=== PATIENT | female | born 1995 | race Caucasian/White ===

== ENCOUNTER → 2017-02-19 | Outpatient (CLI) | payer BC ==
--- NOTE | 2017-02-19 16:05 | RAD ---
MR of the right knee HISTORY: Medial right knee pain after twisting injury wall pitching. TECHNIQUE: Routine multiplanar sequences are obtained. FINDINGS: Moderate motion degradation No evidence of medial meniscal tear. No evidence of lateral meniscal tear. Anterior cruciate ligament intact. Posterior cruciate ligament intact. Medial collateral ligament intact Iliotibial band unremarkable Fibular collateral ligament, biceps femoris tendon and popliteus tendon are intact. Extensor mechanism is intact Large joint effusion. No evidence of osteochondral loose body. Lateral patellar subluxation and tilt. Subchondral marrow contusion or nondisplaced fracture at the inferomedial aspect of the patella. Reciprocating subcortical and subchondral marrow contusion at the lateral femoral condyle. Findings are compatible with a recent lateral patellar dislocation. Partial tearing of the medial retinaculum and medial patellofemoral ligament. Tibial tubercle-trochlear groove distance measures 19 mm. Mild soft tissue edema or contusion around the knee. IMPRESSION: Reciprocating patellofemoral bone injuries compatible with recent lateral patellar dislocation. Partial tearing of medial retinacular structures. Tibial tubercle lateralization measures 19 mm. Electronically signed by: Carlos Galicia MD (02/19/2017 4:02 PM)
== END | disposition home or self-care (01) ==
LOC: MRI 14:07
DX: S83.001A Unspecified subluxation of right patella, initial encounter (principal); X58.XXXA Exposure to other specified factors, initial encounter; Y92.89 Other specified places as the place of occurrence of the external cause; Y93.89 Activity, other specified; Y99.8 Other external cause status
CPT/HCPCS: 73721

== ENCOUNTER → 2017-07-01 | Day surgery (SDC) | payer BC ==
[~2017-07-01] MED LIST: HYDROmorphone 2 MG/ML VIAL IV PRN; IV RINGERS,LACTATED 1000ML 1,000 ML IV SCH; LIDOCAINE 1% PF 2 ML VIAL. ID PRN; LIDOCAINE 2% PF Vial for OR 5 ML VIAL. ONE; MIDAZOLAM HCL/PF 2 MG/2 ML VIAL. IV PRN; MORPHINE SULFATE 2 MG/ML DISP.SYRIN. IV PRN; ONDANSETRON PF 4 MG/2 ML VIAL. IV PRN; PANT40TA5 PO; PROCHLORPERAZINE 10 MG/2 ML VIAL. IV PRN; PROPOFOL 40 ML IV ONE; fentaNYL PF VIAL 100 MCG/2 ML VIAL IV PRN
[2017-07-01 10:07] LABS: NEG OBC UR NEG; POS OBC UR POS
[2017-07-01 11:14] VITALS: BP 110/56
--- NOTE | 2017-07-02 17:03 | PATHOLOGY ---
PATHOLOGY REPORT * * * * * * * * FINAL DIAGNOSIS: A. Small bowel biopsy: - No significant pathologic abnormalities. B. Gastric biopsy, antral nodule: - Consistent with mild reactive gastropathy, with mild chronic inflammation. C. Esophageal biopsy, distal esophagus: - Segments of hyperplastic squamous esophageal mucosa and esophagogastric mucosa showing mild chronic inflammation, consistent with reflux esophagitis. D. Esophageal biopsy, mid esophagus: - Segment of squamous esophageal mucosa identified. COMMENT: Sections of the small bowel biopsy reveal segments of duodenal and small intestine mucosa. Where best oriented, the mucosal villi appear normal. There are no sprue-like changes or significant inflammatory changes. Sections of the gastric antral biopsy show congestion, mild foveolar hyperplasia, and mild chronic inflammation. An immunoperoxidase stain for Helicobacter is obtained. No Helicobacter organisms are identified. The findings are consistent with a mild reactive gastropathy. Sections of the distal esophageal biopsy reveal segments of hyperplastic squamous esophageal mucosa and esophagogastric mucosa showing mild chronic inflammation. The findings are consistent with reflux esophagitis. There is no evidence of Zamudio's change, dysplasia, or malignancy. Sections of the mid esophagus biopsy reveal a segment of tangentially-oriented squamous esophageal mucosa. There is no evidence of Zamudio's change, dysplasia, or malignancy. (JPM:mml; 07/02/2017) REPORT ELECTRONICALLY SIGNED BY: Kenney Mohan M.D. DATE/TIME: 07/02/2017 17:02 * * * * * * * * GROSS PATHOLOGY: A. Received in formalin labeled "Cheyenna Hernandez, small bowel BX," are 4 segments of quinn soft tissue measuring 1.0 x 0.8 x 0.3 cm in aggregate dimensions and ranging from 0.3 to 0.5 cm in maximum dimension. The specimen is submitted entirely in cassette A1. B. Received in formalin labeled "Cheyenna Hernandez, antral nodule," is a segment of quinn soft tissue measuring 0.4 cm in maximum dimension. The specimen is submitted entirely in cassette B1. C. Received in formalin labeled "Cheyenna Hernandez, distal esophagus BX," are 3 segments of quinn soft tissue measuring 1.1 x 0.2 x 0.3 cm in aggregate dimensions and ranging from 0.3 to 0.4 cm in maximum dimension. The specimen is submitted entirely in cassette C1. D. Received in formalin labeled "Cheyenna Hernandez, midesophagus BX," is a segment of quinn soft tissue measuring 0.2 cm in maximum dimension. The specimen is submitted entirely in cassette D1. (TSD; 07/01/2017) INITIAL CPT CODE(S): A; 93880 B; 72436, 64694 C; 28958 D; 84419 Professional services [place] [facility] [place] [address] Technical services performed by [facility] at [address] [place] [address], [facility] [address] [address]. SPECIMEN(S) RECEIVED: A.Small bowel biopsy B.Antral nodule biopsy C.Distal esophagus biopsy D.Mid esophagus CLINICAL HISTORY: GERD PATIENT: SHARMIN HERNANDEZSharla Rodriguez /AGE: 210/20/1995 (Age: 21) PATIENT #: [id number] ALT CASE #: SPECIMEN COLLECTION DATE: 07/01/2017 SPECIMEN RECEIVED DATE: 07/01/2017 [facility] - [id number] [place] [id number] - PHONE: [phone] * * * END OF REPORT * * *
== END | disposition home or self-care (01) ==
LOC: ENDOS 09:24
PROVIDERS: ATTEND Internal Medicine Gastroenterology
DX: K21.0 Gastro-esophageal reflux disease with esophagitis (principal); Z87.39 Personal history of other diseases of the musculoskeletal system and connective tissue; Z88.0 Allergy status to penicillin
CPT/HCPCS: 43239; 43450; 81025; J2704; 88305; 88342; J2001

== ENCOUNTER → 2019-10-12 | Outpatient (CLI) | payer BC ==
[2017-07-01 11:14] VITALS: BP 110/56
[~2019-10-12] MED LIST changes: -HYDROmorphone 2 MG/ML VIAL IV PRN; -IV RINGERS,LACTATED 1000ML 1,000 ML IV SCH; -LIDOCAINE 1% PF 2 ML VIAL. ID PRN; -LIDOCAINE 2% PF Vial for OR 5 ML VIAL. ONE; -MIDAZOLAM HCL/PF 2 MG/2 ML VIAL. IV PRN; -MORPHINE SULFATE 2 MG/ML DISP.SYRIN. IV PRN; -ONDANSETRON PF 4 MG/2 ML VIAL. IV PRN; -PANT40TA5 PO; +PANT40TA77 PO; -PROCHLORPERAZINE 10 MG/2 ML VIAL. IV PRN; -PROPOFOL 40 ML IV ONE; -fentaNYL PF VIAL 100 MCG/2 ML VIAL IV PRN
--- NOTE | 2019-10-12 13:34 | RAD ---
MR of the left ankle HISTORY: Left lateral ankle pain. TECHNIQUE: Routine multiplanar sequences are obtained. FINDINGS: The peroneal tendons are intact. Mild marrow edema within the inferior cuboid bone along the peroneal tunnel. Mild soft tissue edema in this area as well as along the more medial aspect plantar hindfoot extending to the region of the flexor tendons. Anterior talofibular ligament, calcaneofibular ligament and posterior talofibular ligament are intact. Tibiofibular syndesmotic ligaments are intact. Posterior tibial and flexor tendons are intact. No acute medial ligamentous tear. Anterior tibial and extensor tendons are intact. Achilles tendon intact. No acute plantar fasciitis. Subtalar joints are patent. Tarsal sinus is intact. Talar dome is intact. No large joint effusion. No acute fracture. No aggressive bone destruction. IMPRESSION: 1. Mild soft tissue and intramuscular edema at the plantar hindfoot. 2. Mild marrow edema within the plantar aspect of the cuboid bone adjacent to the peroneal groove. Peroneal tendons are intrinsically intact, however, without significant fluid. Electronically signed by: Carlos Galicia MD (10/12/2019 1:31 PM) [id number]
== END | disposition home or self-care (01) ==
LOC: MRI 09:41
PROVIDERS: ATTEND Podiatrist Foot & Ankle Surgery
DX: S86.312A Strain of muscle(s) and tendon(s) of peroneal muscle group at lower leg level, left leg, initial encounter (principal); M79.89 Other specified soft tissue disorders; X58.XXXA Exposure to other specified factors, initial encounter; Y93.89 Activity, other specified; Y92.89 Other specified places as the place of occurrence of the external cause; Y99.8 Other external cause status
CPT/HCPCS: 73721

== ENCOUNTER → 2021-04-24 | Outpatient (CLI) | payer BC ==
[2017-07-01 11:14] VITALS: BP 110/56
--- NOTE | 2021-04-24 14:36 | KCIC ---
Examination: MRI of the left knee without contrast HISTORY: Patellar dislocation COMPARISON: None available TECHNIQUE: Multiplanar, multisequence MR imaging of the left knee were performed without contrast FINDINGS: The anterior cruciate ligament and posterior cruciate ligament appears intact. The medial, lateral me niscus appears intact.The extensor mechanism is intact. The medial collateral ligament is intact. The lateral collateral ligamentous complex including the fibular collateral ligament, biceps femoris ten don, popliteus tendon appears intact. Moderate knee joint effusion. There is moderate trabecular edema identified in the medial patella and the lateral femoral condyle l ikely related to transient patellar dislocation. There is mild increased T2 signal at the attachment of the medial retinaculum to the patella likely secondary to injury. 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 There is mild tilting of the patella laterally. The TG-TT distance measures 1.1 cm. There is mild increased T2 signal in the deep fibers of the vastus medialis muscle attachment of the distal femur probably stripping of some of the muscle fibers from patellar dislocation. IMPRESSION: 1. Moderate trabecular edema identified in the medial patella and the lateral femoral condyle likely related to transient patellar dislocation. There is mild increased T2 signal at the attachment of th e medial retinaculum to the patella likely secondary to injury. 2. 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 There is mild increased T2 signal in the deep fibers of the v astus medialis muscle attachment of the distal femur probably stripping of some of the muscle fibers from patellar dislocation. 3. Moderate knee joint effusion. Electronically signed by: Milad Turcios MD (04/24/2021 2:34 PM) [id number]
== END ==
LOC: KCIC MRI 12:33
PROVIDERS: ATTEND Family Medicine
DX: S83.005A Unspecified dislocation of left patella, initial encounter (principal); M25.462 Effusion, left knee; X58.XXXA Exposure to other specified factors, initial encounter; Y93.89 Activity, other specified; Y92.89 Other specified places as the place of occurrence of the external cause; Y99.8 Other external cause status
CPT/HCPCS: 73721